=== PATIENT | female | born 1950 | race Two or more races ===

== ENCOUNTER 2022-01-26 05:35 | Day surgery (SDC) | payer OTHER ==
[~2022-01-26] VITALS: Ht 152.4 cm; Wt 68.0 kg
[~2022-01-26 05:35] MED LIST: HORIZANT600 MG PO; JENTADUETO 2.51 EACH PO; LASIX40 MG PO; MOBIC7.5 MG PO; NORVASC5 MG PO; TOPROL XL50 M1 PO
== END 2022-01-26 18:55 | disposition home or self-care (01) ==
LOC: CIR.AMB 05:35
PROVIDERS: ATTEND Colon & Rectal Surgery
DX: K62.2 Anal prolapse (principal); Z20.822 Contact with and (suspected) exposure to COVID-19; Z86.010 Personal history of colon polyps; K64.1 Second degree hemorrhoids; I10 Essential (primary) hypertension

== ENCOUNTER 2022-08-31 07:21 | Inpatient (IN) | payer OTHER ==
[~2022-08-31] VITALS: Ht 149.9 cm; Wt 68.0 kg
[~2022-08-31 07:21] MED LIST changes: +COZAAR100 MG PO; +LIPITOR20 MG PO
[2022-09-01] MEDS ORDERED: ATORVASTATIN CA20 MG (08:29)
[2022-09-01] MEDS ORDERED: METOPROLOL TART50 MG (08:29)
[2022-09-01] MEDS ORDERED: PERCOCET 5-3251 EACH PO (12:51)
== END 2022-09-01 19:29 | disposition home or self-care (01) | DRG 349 ==
LOC: CIR.AMB 07:21 → O/R 13:43 → SURH 13:43
PROVIDERS: ADMIT Colon & Rectal Surgery; ATTEND Colon & Rectal Surgery
PROC: 0DUR0JZ Supplement Anal Sphincter with Synthetic Substitute, Open Approach (ICD-10-PCS; 2022-08-31)
PROC: 0DJD8ZZ Inspection of Lower Intestinal Tract, Via Natural or Artificial Opening Endoscopic (ICD-10-PCS; 2022-08-31)
PROC: 0DBP7ZZ Excision of Rectum, Via Natural or Artificial Opening (ICD-10-PCS; principal; 2022-08-31 08:45)
DX: K62.3 Rectal prolapse (principal); N81.6 Rectocele; R15.9 Full incontinence of feces; Z20.822 Contact with and (suspected) exposure to COVID-19